=== PATIENT | male | born 1995 | race Caucasian/White ===

== ENCOUNTER 2021-09-06 00:46 | Emergency (ER) | payer OTHER ==
[~2021-09-06] VITALS: Ht 170.2 cm; Wt 73.0 kg
[2021-09-06 01:03] VITALS: BP 124/82
== END 2021-09-06 03:03 | disposition left against medical advice (07) ==
LOC: ER 00:46
DX: R50.9 Fever, unspecified (principal); Z53.21 Procedure and treatment not carried out due to patient leaving prior to being seen by health care provider